=== PATIENT | male | born 1990 ===

== ENCOUNTER 2019-11-17 12:04 | Inpatient (IN) | payer SELFPAY ==
[2019-11-17 12:55] VITALS: BP 133/88; PULSE 66; RESP 18; TEMP 36.5; O2SAT 95
[2019-11-17] MEDS: LORazepam 2 MG/ML VIAL 1 MG IVP (13:19)
[2019-11-17] MEDS: Normal Saline Flush 10 ML SYR (13:22)
[2019-11-17 13:35] VITALS: BP 133/88; PULSE 66; RESP 18; TEMP 36.5; O2SAT 95
[2019-11-17] MEDS: Haloperidol 5 MG/ML VIAL IM (14:34)
--- NOTE | 2019-11-17 16:59 | W.PM.HP.N ---
Date of service: 11/17/19 Time of Service: 01:40 Assessment and Plan Assessment and plan (1) Confusion caused by a drug: Status: Acute Assessment and plan: Serotonin syndrome from excessive ingestion of citalopram is likely the cause of his current state of confusion/hallucinations. He had relapsed appx 6 days ago and used opiates; unclear of what opiate and how much. Plan was to monitor and have mental health evaluation. (2) Abnormal finding on EKG: Status: Acute Assessment and plan: His EKG showed a normal QRS length. T-waves somewhat peaked but may be appropriate for his age. History of Present Illness History of Present Illness Chief Complaint: EKG abnormalities d/t overdose Narrative: This is a 29 yo male with a h/o substance abuse including alcohol, opiates and heroin. He presented here in transfer from [facility]. He presented to [facility] on the day of this admission with his girlfriend who endorsed that the patient was confused. He reported passing out and having a seizure but his girlfriend stated that this did not occur. She related that for the last 48 hours he had been confused and talking to nonexistent people. Prior to the last 48 hours he had been lethargic and staying primarily in bed. His girlfriend did state that he had been taking a roommates citalopram, appx 5 per day for 3 days. For 2 weeks he has been enrolled in the Suboxone program at [facility]. He admitted to [facility] and using opiates 5-6 days prior to admission. In report from [facility] it was stated that his EKG showed peak t-waves and widened QRS complex. Upon arrival at [facility], the patient was confused, confabulating intermittently and restless. He attempted to walk out of the unit intermittently. He was given a dose of IV ativan w/o any perceptible effect. An IM haldol was ordered but he refused. A mental health evaluation was ordered but patient signed out AMA before that eval could take place. To facilitate his safety, a cab was called and police were notified. Review of Systems Unobtainable due to mental condition [facility] Social History Alcohol Intake: current Alcohol Intake frequency: 3 or more drinks per day Alcohol type: beer Drug use: Occasionally Substance use type: marijuana, crack/cocaine, heroin, hallucinogens, painkillers and prescription drug Do you feel safe at home: Yes Do you feel safe in your relationship?: Yes Meds Home Medications and Allergies Home Medications Medication Instructions Recorded Confirmed Type buprenorphine-naloxone [Suboxone] 12 film SUBLINGUAL DAILY 11/17/19 11/17/19 History Exam Const General: no acute distress Nutritional Appearance: average body habitus Orientation: alert and confused Limitations: altered mental status Resp Effort & Inspection: normal respiratory effort Auscultation: clear to auscultation bilaterally Cardio Rate: regular rate Rhythm: regular rhythm Heart Sounds: S1 normal and S2 normal Neuro General: patient alert and moves all extremities Cognition: abnormal cognition Speech: speech normal Gait: normal gait Psych Speech and Movement: restless Mood: labile mood Affect: anxious affect Thought Process: confabulating, flight of ideas and illogical Thought Content: hallucinations Insight: poor Judgment: poor Results Last Vital Signs Temp 36.5 C 11/17/19 13:35 Pulse 66 11/17/19 13:35 Resp 18 11/17/19 13:35 BP 133/88 11/17/19 13:35 Pulse Ox 95 11/17/19 13:35 COVID-19 Screening Have you,or household,traveled outside [place] in last 14 days?: Yes Had IN PERSON contact w/suspected or confirmed C-19 person: No
--- NOTE | 2019-11-17 17:30 | DSE_ITS ---
Date of service: 11/17/19 Time of Service: 17:30 DS: Diagnosis Discharge Diagnosis (1) Confusion caused by a drug: Status: Acute (2) Abnormal finding on EKG: Status: Acute Discharge Plan Disposition Patient Disposition: AGAINST MEDICAL ADVICE Condition: Improving Discharge Details Reason For Visit: OVERDOSE Admit Date/Time: 11/17/19 12:04 Admit Provider: Del Amaral Attending Provider: Del Amaral Primary Care Provider: Unknown,Unknown Hospital Course Hospital Course: EKG abnormalities d/t overdose Narrative: This is a 29 yo male with a h/o substance abuse including alcohol, opiates and heroin. He presented here in transfer from [facility]. He presented to [facility] on the day of this admission with his girlfriend who endorsed that the patient was confused. He reported passing out and having a seizure but his girlfriend stated that this did not occur. She related that for the last 48 hours he had been confused and talking to nonexistent people. Prior to the last 48 hours he had been lethargic and staying primarily in bed. His girlfriend did state that he had been taking a roommates citalopram, appx 5 per day for 3 days. For 2 weeks he has been enrolled in the Suboxone program at [facility]. He admitted to [facility] and using opiates 5-6 days prior to admission. In report from [facility] it was stated that his EKG showed peak t-waves and widened QRS complex. Upon arrival at [facility], the patient was confused, confabulating intermittently and restless. He attempted to walk out of the unit intermittently. He was given a dose of IV ativan w/o any perceptible effect. An IM haldol was ordered but he refused. A mental health evaluation was ordered but patient signed out AMA before that eval could take place. To facilitate his safety, a cab was called and police were notified. Home Meds and New Rx's Prescriptions: No Action buprenorphine-naloxone [Suboxone] 12-3 mg Film 12 film sublingual DAILY RF: 0 Discharge Data Discharge Date/Time-TO BE ENTERED AT DEPARTURE: 11/17/19 14:21 DS: Summary Status at Discharge Functional status at discharge: independent ambulation Overall status at discharge: patient is not back to baseline Mental Status: other Speech and Movement: speech and movement normal Mood: other Affect: other (confused / anxious but not combative. No SI or HI.) Exam Psych Mental Status: other Speech and Movement: speech and movement normal Mood: other Affect: other (confused / anxious but not combative. No SI or HI.) DS: Data Vitals/I&O Vitals and I&O: Vital Signs Temperature 36.5 C 11/17/19 13:35 Pulse 66 11/17/19 13:35 Pulse Rhythm Regular 11/17/19 13:35 Respiratory Rate 18 11/17/19 13:35 Respiratory Effort Non-Labored 11/17/19 13:35 Respiratory Depth Normal 11/17/19 13:35 Respiratory Pattern Normal 11/17/19 13:35 Blood Pressure 133/88 11/17/19 13:35 Pulse Oximetry 95 11/17/19 13:35 Oxygen Delivery Method Room Air 11/17/19 13:35 Oxygen Flow Rate 0 11/17/19 13:35 Pain Level 0 11/17/19 13:35 Intake & Output 11/16/19 11/17/19 11/17/19 23:59 11:59 23:59 Weight 71.668 kg Other: Urine Appearance Clear [facility] Social History Alcohol Intake: current Alcohol Intake frequency: 3 or more drinks per day Alcohol type: beer Drug use: Occasionally Substance use type: marijuana, crack/cocaine, heroin, hallucinogens, painkillers and prescription drug Do you feel safe at home: Yes Do you feel safe in your relationship?: Yes
== END 2019-11-17 14:21 | disposition left against medical advice (07) | DRG 918 ==
PROVIDERS: Admitting Provider Family Medicine; Visit Provider Family Medicine
DX: T43.221A Poisoning by selective serotonin reuptake inhibitors, accidental (unintentional), initial encounter (principal); F11.20 Opioid dependence, uncomplicated; R44.2 Other hallucinations; R41.0 Disorientation, unspecified
CPT/HCPCS: 99222; NC; J1630; J2060